=== PATIENT | female | born 1975 | race Caucasian/White ===

== ENCOUNTER 2019-01-22 18:33 | Emergency (ER) | payer MEDICAID ==
[~2019-01-22] VITALS: Ht 160 cm; Wt 110.0 kg
[2019-01-22 18:56] VITALS: BP 153/90
== END 2019-01-23 05:34 | disposition home or self-care (01) ==
LOC: ER 19:45
DX: S80.262A Insect bite (nonvenomous), left knee, initial encounter (principal); F41.9 Anxiety disorder, unspecified; Z87.891 Personal history of nicotine dependence; Z98.51 Tubal ligation status; W57.XXXA Bitten or stung by nonvenomous insect and other nonvenomous arthropods, initial encounter; Y93.89 Activity, other specified; Y92.89 Other specified places as the place of occurrence of the external cause; Y99.8 Other external cause status
CPT/HCPCS: 99281

== ENCOUNTER 2021-10-06 07:39 | Emergency (ER) | payer MEDICAID ==
[~2021-10-06] VITALS: Ht 157.5 cm; Wt 80.0 kg
[2021-10-06 08:13] VITALS: BP 131/86
== END 2021-10-06 10:51 | disposition home or self-care (01) ==
LOC: ER 07:49
DX: S93.492A Sprain of other ligament of left ankle, initial encounter (principal); W50.2XXA Accidental twist by another person, initial encounter; Y93.89 Activity, other specified; Y92.89 Other specified places as the place of occurrence of the external cause; Y99.8 Other external cause status; Z98.51 Tubal ligation status
CPT/HCPCS: 73610; 99283